=== PATIENT | male | born 1950 | race African-American/Black ===

== ENCOUNTER 2017-01-25 20:02 | Inpatient (IN) | payer MEDICARE, OTHER ==
[~2017-01-25] VITALS: Ht 177.8 cm; Wt 57.0 kg
[~2017-01-25 20:02] MED LIST: ACET-2247 PO; ALBU8HFA IH; AMLO-512 PO; ATOR40TA28 PO; CARV3 PO; FERR-89 PO; FURO40 PO; GABA-318 PO; GUAIF10 PO; INSLAN SQ; INSNOV SQ; IPRAHFA IH; ISOS1TAB2 PO; LISI-662 PO; METF500T4 PO; MULT-1203 PO; NEPA1.7D OP; OXYB5XL PO; PANT40TA25 PO; RISP3 PO; SOLI5 PO; TAMS0.4C32 PO; TERA5 PO; VALS160T2 PO
[2017-01-25 20:22] LABS: GLUCOSE,POINT OF CARE 166 MG/DL (70-110)
[2017-01-25] MEDS ORDERED: LACT1TAB11 PO (20:39)
[2017-01-25] MEDS ORDERED: METO25XL PO (20:39)
[2017-01-25] MEDS ORDERED: IPRA3AMP4 IH (20:39)
[2017-01-25] MEDS ORDERED: HYDR-2924 PO (20:39)
[2017-01-25] MEDS ORDERED: HYDR-4061 PO (20:39)
[2017-01-25] MEDS ORDERED: AMLO-512 PO (20:39)
[2017-01-25] MEDS ORDERED: OMEP20 PO (20:39)
[2017-01-25] MEDS ORDERED: SPIR25 PO (20:39)
[2017-01-25 21:21] LABS: BASOPHILS % (AUTO) 0.6 % (0.0-2.0); EOSINOPHILS % (AUTO) 4.3 % (1.0-6.0); LYMPHOCYTES # (AUTO) 0.9 K/uL (1.0-4.8); LYMPHOCYTES % (AUTO) 20.1 % (22.0-44.0); MEAN CORPUSCULAR HGB CONC 32.6 G/dL (31.0-37.0); MEAN CORPUSCULAR VOLUME 98 fL (80-100); MONOCYTES # (AUTO) 0.4 K/uL (0.1-1.0); MONOCYTES % (AUTO) 7.7 % (2.0-9.0); NEUTROPHILS # (AUTO) 3.1 K/uL (1.8-7.7); NEUTROPHILS % (AUTO) 67.3 % (40.0-70.0); PLATELET COUNT (AUTO) 402 K/uL (150-450); RED CELL DISTRIBUTION WIDTH 20.2 % (11.5-14.5); WHITE BLOOD COUNT (AUTO) 4.6 K/uL (4.5-11.0)
[2017-01-25 21:28] LABS: CREATININE 1.85 mg/dL (0.60-1.30); POTASSIUM 4.5 mmol/L (3.5-5.1)
[2017-01-25 21:29] LABS: HEMATOCRIT 19.7 % (41-53); HEMOGLOBIN 6.4 g/dL (13.5-17.5)
[2017-01-25 21:30] LABS: INR 1.1 (0.9-1.1); PROTHROMBIN TIME 11.1 SEC (9.4-11.6)
[2017-01-25 21:34] LABS: ALBUMIN 3.4 g/dL (3.4-5.0); BILIRUBIN,TOTAL 0.2 mg/dL (0.1-1.0); TOTAL PROTEIN, SERUM 7.3 g/dL (6.4-8.2)
[2017-01-25 21:38] LABS: RBC MORPHOLOGY COMMENT ABNORMAL RBC MORPH
[2017-01-25] MEDS ORDERED: ACETAMINOPHEN 325 MG TABLET PO PRN (22:30)
[2017-01-25] MEDS ORDERED: OxyCODONE HCL/ACETAMINOPHEN 5-325 MG TABLET PO PRN (22:30)
[2017-01-25] MEDS ORDERED: BISACODYL 10 MG RECTAL RECTAL SUPPOSITORY PR PRN (22:30)
[2017-01-25] MEDS ORDERED: ALBUTEROL SULFATE 2.5 MG/0.5 ML NEB SOLUTION NEB PRN (22:30)
[2017-01-25] MEDS ORDERED: SODIUM CHLORIDE 0.9% 1,000 ML IV ONE (22:37)
[2017-01-25] MEDS ORDERED: DEXTROSE 50%-WATER 25 GM/50 ML SYRINGE IVP PRN (22:45)
[2017-01-25 23:35] LABS: APPEARANCE,URINE CLEAR (CLEAR); GLUCOSE, URINE (UA) NEGATIVE (NEGATIVE); KETONES,URINE NEGATIVE (NEGATIVE); LEUKOCYTE ESTERASE ,URINE MODERATE (NEGATIVE); OCCULT BLOOD,URINE NEGATIVE (NEGATIVE); PROTEIN,URINE SEE CONFIRM (NEGATIVE)
[2017-01-25 23:43] LABS: ADD UA MICROSCOPIC YES
[2017-01-25 23:50] VITALS: BP 132/68
[2017-01-25 23:57] LABS: RBC,URINE 0-2 /HPF (0-2); SULFOSALICYLIC ACID,URINE Negative (Negative)
[2017-01-25 23:58] LABS: SQUAMOUS EPITHELIAL CELL,UR Few /LPF (None Seen)
[2017-01-26] VITALS (21 sets, daily range): BP systolic 132–177; BP diastolic 51–89
[2017-01-26 07:02] LABS: GLUCOSE,POINT OF CARE 121 MG/DL (70-110)
[2017-01-26 07:45] LABS: BASOPHILS % (AUTO) 0.4 % (0.0-2.0); EOSINOPHILS % (AUTO) 4.3 % (1.0-6.0); HEMATOCRIT 24.3 % (41-53); HEMOGLOBIN 8.1 g/dL (13.5-17.5); LYMPHOCYTES # (AUTO) 0.7 K/uL (1.0-4.8); LYMPHOCYTES % (AUTO) 14.3 % (22.0-44.0); MEAN CORPUSCULAR HEMOGLOBIN 31.5 pg (26.0-34.0); MEAN CORPUSCULAR HGB CONC 33.5 G/dL (31.0-37.0); MEAN CORPUSCULAR VOLUME 94 fL (80-100); MONOCYTES # (AUTO) 0.4 K/uL (0.1-1.0); MONOCYTES % (AUTO) 8.5 % (2.0-9.0); NEUTROPHILS # (AUTO) 3.7 K/uL (1.8-7.7); NEUTROPHILS % (AUTO) 72.5 % (40.0-70.0); PLATELET COUNT (AUTO) 355 K/uL (150-450); RED BLOOD CELL COUNT(AUTO) 2.59 MIL/uL (4.50-5.90); RED CELL DISTRIBUTION WIDTH 20.2 % (11.5-14.5)
[2017-01-26 07:54] LABS: CALCIUM, TOTAL 8.7 mg/dL (8.8-10.5); CREATININE 1.5 mg/dL (0.60-1.30); POTASSIUM 4.3 mmol/L (3.5-5.1)
[2017-01-26 08:35] LABS: RBC MORPHOLOGY COMMENT ABNORMAL RBC MORPH
[2017-01-26] MEDS: PANTOPRAZOLE SODIUM 40 MG/VIAL IVP SCH (08:38)
[2017-01-26] MEDS: DOCUSATE SODIUM 100 MG CAPSULE PO SCH ×3 (08:38→21:00)
[2017-01-26] MEDS: FUROSEMIDE 40 MG/4 ML VIAL IVP SCH ×2 (08:38→20:37)
[2017-01-26] MEDS: VITAMIN B COMP/VIT C/FOLIC ACID CAPSULE PO SCH (08:38)
[2017-01-26] MEDS: GABAPENTIN 300 MG CAPSULE PO SCH ×3 (08:38→20:37)
[2017-01-26] MEDS: INSULIN ASPART 100 UNITS/ML SQ PRN ×2 (12:06→20:44)
[2017-01-27 00:51] VITALS: BP 136/72
[2017-01-27 03:50] VITALS: BP 145/64
[2017-01-27 07:19] VITALS: BP 152/81
[2017-01-27 07:34] VITALS: BP 155/74
[2017-01-27] MEDS: VITAMIN B COMP/VIT C/FOLIC ACID CAPSULE PO SCH (09:00)
[2017-01-27] MEDS: PANTOPRAZOLE SODIUM 40 MG/VIAL IVP SCH (09:00)
[2017-01-27] MEDS: GABAPENTIN 300 MG CAPSULE PO SCH ×3 (09:00→20:22)
[2017-01-27] MEDS: FUROSEMIDE 40 MG/4 ML VIAL IVP SCH ×2 (09:00→20:22)
[2017-01-27] MEDS: DOCUSATE SODIUM 100 MG CAPSULE PO SCH ×2 (09:00→20:22)
[2017-01-27 11:21] VITALS: BP 128/58
[2017-01-27] MEDS: INSULIN ASPART 100 UNITS/ML SQ PRN ×3 (11:58→20:34)
[2017-01-27 14:43] LABS: GLUCOSE,POINT OF CARE 132 MG/DL (70-110)
[2017-01-27 14:43] LABS: GLUCOSE COMMENT 1 Received Meds; GLUCOSE,POINT OF CARE 159 MG/DL (70-110)
[2017-01-27 14:44] LABS: GLUCOSE COMMENT 1 Received Meds; GLUCOSE,POINT OF CARE 154 MG/DL (70-110)
[2017-01-27 14:44] LABS: GLUCOSE,POINT OF CARE 149 MG/DL (70-110)
[2017-01-27 14:44] LABS: GLUCOSE,POINT OF CARE 109 MG/DL (70-110)
[2017-01-27 15:16] LABS: BASOPHILS % (AUTO) 0.6 % (0.0-2.0); EOSINOPHILS % (AUTO) 3.3 % (1.0-6.0); HEMOGLOBIN 10.4 g/dL (13.5-17.5); LYMPHOCYTES # (AUTO) 0.7 K/uL (1.0-4.8); LYMPHOCYTES % (AUTO) 15.6 % (22.0-44.0); MEAN CORPUSCULAR HEMOGLOBIN 31.6 pg (26.0-34.0); MEAN CORPUSCULAR HGB CONC 33.5 G/dL (31.0-37.0); MEAN CORPUSCULAR VOLUME 94 fL (80-100); MONOCYTES # (AUTO) 0.2 K/uL (0.1-1.0); MONOCYTES % (AUTO) 5.4 % (2.0-9.0); NEUTROPHILS # (AUTO) 3.3 K/uL (1.8-7.7); NEUTROPHILS % (AUTO) 75.1 % (40.0-70.0); PLATELET COUNT (AUTO) 324 K/uL (150-450); RED BLOOD CELL COUNT(AUTO) 3.28 MIL/uL (4.50-5.90); WHITE BLOOD COUNT (AUTO) 4.4 K/uL (4.5-11.0)
[2017-01-27 16:41] LABS: RBC MORPHOLOGY COMMENT ABNORMAL RBC MORPH
[2017-01-27 17:30] LABS: VITAMIN B12 LEVEL 664 pg/mL (211-911)
[2017-01-27] MEDS ORDERED: SODIUM CHLORIDE 0.9% 250 ML IV ONE (18:29)
[2017-01-27] MEDS: CefTRIAXone SODIUM 2 GM in DEXTROSE 5%-WATER 50 ML IV SCH (18:32)
[2017-01-27 20:05] VITALS: BP 143/71
[2017-01-28 00:02] VITALS: BP 145/68
[2017-01-28 04:48] VITALS: BP 162/83
[2017-01-28 07:43] LABS: GLUCOSE COMMENT 1 Received Meds; GLUCOSE,POINT OF CARE 163 MG/DL (70-110)
[2017-01-28 07:43] LABS: GLUCOSE,POINT OF CARE 132 MG/DL (70-110)
[2017-01-28 07:43] LABS: GLUCOSE COMMENT 1 Received Meds; GLUCOSE,POINT OF CARE 175 MG/DL (70-110)
[2017-01-28 07:54] VITALS: BP 113/52
[2017-01-28] MEDS: FUROSEMIDE 40 MG/4 ML VIAL IVP SCH (08:31)
[2017-01-28] MEDS: PANTOPRAZOLE SODIUM 40 MG/VIAL IVP SCH (08:31)
[2017-01-28] MEDS: DOCUSATE SODIUM 100 MG CAPSULE PO SCH (08:32)
[2017-01-28] MEDS: GABAPENTIN 300 MG CAPSULE PO SCH ×2 (08:32→16:10)
[2017-01-28] MEDS: VITAMIN B COMP/VIT C/FOLIC ACID CAPSULE PO SCH (08:32)
[2017-01-28 10:13] VITALS: BP 151/90
[2017-01-28 11:35] VITALS: BP 150/76
[2017-01-28] MEDS ORDERED: LEVOFLOXACIN 500 MG TABLET PO ONE (11:45)
[2017-01-28 12:46] LABS: CALCIUM, TOTAL 8.7 mg/dL (8.8-10.5); CREATININE 1.67 mg/dL (0.60-1.30)
[2017-01-28 13:02] LABS: EOSINOPHILS % (AUTO) 2.7 % (1.0-6.0); HEMATOCRIT 30.9 % (41-53); HEMOGLOBIN 10.4 g/dL (13.5-17.5); LYMPHOCYTES # (AUTO) 0.6 K/uL (1.0-4.8); LYMPHOCYTES % (AUTO) 10.8 % (22.0-44.0); MEAN CORPUSCULAR HEMOGLOBIN 31.6 pg (26.0-34.0); MEAN CORPUSCULAR HGB CONC 33.4 G/dL (31.0-37.0); MEAN CORPUSCULAR VOLUME 94 fL (80-100); MONOCYTES # (AUTO) 0.5 K/uL (0.1-1.0); MONOCYTES % (AUTO) 8.8 % (2.0-9.0); NEUTROPHILS # (AUTO) 4.1 K/uL (1.8-7.7); NEUTROPHILS % (AUTO) 77.7 % (40.0-70.0); PLATELET COUNT (AUTO) 352 K/uL (150-450); RED BLOOD CELL COUNT(AUTO) 3.28 MIL/uL (4.50-5.90); RED CELL DISTRIBUTION WIDTH 18.6 % (11.5-14.5); WHITE BLOOD COUNT (AUTO) 5.2 K/uL (4.5-11.0)
[2017-01-28 13:18] LABS: RBC MORPHOLOGY COMMENT ABNORMAL RBC MORPH
[2017-01-28] MEDS ORDERED: HYDROCODONE/ACETAMINOPHEN 5-325 MG TABLET PO PRN (14:15)
[2017-01-28 14:28] LABS: GLUCOSE,POINT OF CARE 137 MG/DL (70-110)
[2017-01-28 15:34] VITALS: BP 106/69
[2017-01-28] MEDS ORDERED: LEVO250 PO (16:53)
[2017-01-28] MEDS ORDERED: FOLI1CAP2 PO (16:54)
[2017-01-28] MEDS: CefTRIAXone SODIUM 2 GM in DEXTROSE 5%-WATER 50 ML IV SCH (17:41)
[2017-01-29 01:02] LABS: GLUCOSE,POINT OF CARE 130 MG/DL (70-110)
[2017-01-29] MEDS ORDERED: LEVOFLOXACIN 500 MG TABLET PO SCH (09:00)
== END 2017-01-28 18:55 | DRG 811 ==
LOC: EMS 20:05 → 5S 22:44
PROVIDERS: ADMIT Internal Medicine; ATTEND Internal Medicine
PROC: 30233N1 Transfusion of Nonautologous Red Blood Cells into Peripheral Vein, Percutaneous Approach (ICD-10-PCS; principal; 2017-01-25)
DX: D64.9 Anemia, unspecified (principal); E43 Unspecified severe protein-calorie malnutrition; I50.43 Acute on chronic combined systolic (congestive) and diastolic (congestive) heart failure; I13.0 Hypertensive heart and chronic kidney disease with heart failure and stage 1 through stage 4 chronic kidney disease, or unspecified chronic kidney disease; E11.22 Type 2 diabetes mellitus with diabetic chronic kidney disease; E11.40 Type 2 diabetes mellitus with diabetic neuropathy, unspecified; N18.3 Chronic kidney disease, stage 3 (moderate); I25.10 Atherosclerotic heart disease of native coronary artery without angina pectoris; J44.9 Chronic obstructive pulmonary disease, unspecified; F17.210 Nicotine dependence, cigarettes, uncomplicated; F20.9 Schizophrenia, unspecified; G89.29 Other chronic pain; H40.9 Unspecified glaucoma; Z79.4 Long term (current) use of insulin; Z87.11 Personal history of peptic ulcer disease
CPT/HCPCS: 36430; 82271; 82607; 82746; 82962; 86850; 86900; 86901; 86920; 87081; 87086; 93005; 93306; 99285; C9113; J0696; J1940; J7030; J7050; J7060; P9016

== ENCOUNTER 2017-02-15 17:52 | Emergency (ER) | payer MEDICARE, OTHER ==
[~2017-02-15] VITALS: Ht 180.3 cm; Wt 61.8 kg
[~2017-02-15 17:52] MED LIST changes: -ACET-2247 PO; -ALBU8HFA IH; -ATOR40TA28 PO; -CARV3 PO; +FOLI1CAP2 PO; -GUAIF10 PO; +HYDR-2924 PO; +HYDR-4061 PO; -INSNOV SQ; +IPRA3AMP4 IH; -IPRAHFA IH; -ISOS1TAB2 PO; +LACT1TAB11 PO; +LEVO250 PO; -LISI-662 PO; -METF500T4 PO; +METO25XL PO; -MULT-1203 PO; -NEPA1.7D OP; +OMEP20 PO; -OXYB5XL PO; -PANT40TA25 PO; -RISP3 PO; -SOLI5 PO; +SPIR25 PO; -TAMS0.4C32 PO; -TERA5 PO; -VALS160T2 PO
[2017-02-15 18:43] LABS: BASOPHILS % (AUTO) 0.4 % (0.0-2.0); EOSINOPHILS % (AUTO) 2.6 % (1.0-6.0); HEMATOCRIT 22.2 % (41-53); HEMOGLOBIN 7.2 g/dL (13.5-17.5); LYMPHOCYTES # (AUTO) 1.3 K/uL (1.0-4.8); LYMPHOCYTES % (AUTO) 16.6 % (22.0-44.0); MEAN CORPUSCULAR HEMOGLOBIN 31.1 pg (26.0-34.0); MEAN CORPUSCULAR HGB CONC 32.7 G/dL (31.0-37.0); MEAN CORPUSCULAR VOLUME 95 fL (80-100); MONOCYTES # (AUTO) 0.4 K/uL (0.1-1.0); MONOCYTES % (AUTO) 5.8 % (2.0-9.0); NEUTROPHILS # (AUTO) 5.7 K/uL (1.8-7.7); NEUTROPHILS % (AUTO) 74.6 % (40.0-70.0); PLATELET COUNT (AUTO) 409 K/uL (150-450); RED BLOOD CELL COUNT(AUTO) 2.33 MIL/uL (4.50-5.90); RED CELL DISTRIBUTION WIDTH 17.9 % (11.5-14.5); WHITE BLOOD COUNT (AUTO) 7.6 K/uL (4.5-11.0)
[2017-02-15 18:53] LABS: CALCIUM, TOTAL 9.1 mg/dL (8.8-10.5); CREATININE 2.04 mg/dL (0.60-1.30); POTASSIUM 4.6 mmol/L (3.5-5.1)
[2017-02-15 18:59] LABS: ALBUMIN 3.5 g/dL (3.4-5.0); BILIRUBIN,TOTAL 0.3 mg/dL (0.1-1.0); TOTAL PROTEIN, SERUM 7.7 g/dL (6.4-8.2)
[2017-02-15 19:26] LABS: RBC MORPHOLOGY COMMENT ABNORMAL RBC MORPH
[2017-02-15] MEDS ORDERED: SODIUM CHLORIDE 0.9% 500 ML IV ONE (22:15)
[2017-02-15 22:30] VITALS: BP 135/84
[2017-02-15 22:45] VITALS: BP 127/66
[2017-02-15 23:00] VITALS: BP 147/66
[2017-02-15 23:15] VITALS: BP 142/65
[2017-02-15 23:45] VITALS: BP 136/72
[2017-02-16 00:30] VITALS: BP 138/81
[2017-02-16 00:45] VITALS: BP 141/76
[2017-02-16 01:39] VITALS: BP 141/76
== END 2017-02-16 02:35 | disposition home or self-care (01) ==
LOC: EMS 17:54
DX: D64.9 Anemia, unspecified (principal); N17.9 Acute kidney failure, unspecified; I11.0 Hypertensive heart disease with heart failure; I50.9 Heart failure, unspecified; E11.9 Type 2 diabetes mellitus without complications; J44.9 Chronic obstructive pulmonary disease, unspecified; Z79.4 Long term (current) use of insulin; Z87.891 Personal history of nicotine dependence
CPT/HCPCS: 36415; 36430; 80053; 82270; 83540; 83550; 85025; 86850; 86900; 86901; 86920; 99285; J7040; P9016

== ENCOUNTER 2017-03-10 09:02 | Inpatient (IN) | payer MEDICARE, OTHER ==
[2017-03-10] VITALS (15 sets, daily range): BP systolic 122–173; BP diastolic 57–90
[~2017-03-10] VITALS: Ht 180.3 cm; Wt 67.4 kg
[2017-03-10 09:13] LABS: GLUCOSE,POINT OF CARE 245 MG/DL (70-110)
[2017-03-10 10:49] LABS: MEAN CORPUSCULAR HEMOGLOBIN 30.9 pg (26.0-34.0); MEAN CORPUSCULAR HGB CONC 33.6 G/dL (31.0-37.0); MEAN CORPUSCULAR VOLUME 92 fL (80-100); PLATELET COUNT (AUTO) 375 K/uL (150-450); RED BLOOD CELL COUNT(AUTO) 2.12 MIL/uL (4.50-5.90); RED CELL DISTRIBUTION WIDTH 19.5 % (11.5-14.5)
[2017-03-10 10:51] LABS: HEMOGLOBIN 6.6 g/dL (13.5-17.5)
[2017-03-10 10:52] LABS: HEMATOCRIT 19.5 % (41-53)
[2017-03-10 10:55] LABS: INR 1.1 (0.9-1.1); PROTHROMBIN TIME 11.5 SEC (9.4-11.6)
[2017-03-10 10:58] LABS: CREATININE 2.06 mg/dL (0.60-1.30); POTASSIUM 4.4 mmol/L (3.5-5.1)
[2017-03-10 11:03] LABS: ALBUMIN 3.3 g/dL (3.4-5.0); BILIRUBIN,TOTAL 0.2 mg/dL (0.1-1.0); TOTAL PROTEIN, SERUM 7.1 g/dL (6.4-8.2)
[2017-03-10 11:06] LABS: BAND NEUTROPHILS % (MANUAL) 4 % (1-5); EOSINOPHILS % (MANUAL) 1 % (1-6); LYMPHOCYTES % (MANUAL) 24 % (22-44); SEGMENTED NEUTROPHILS % 71 % (40-70)
[2017-03-10 11:31] LABS: APPEARANCE,URINE CLOUDY (CLEAR); BILIRUBIN,URINE NEGATIVE (NEGATIVE); GLUCOSE, URINE (UA) NEGATIVE (NEGATIVE); KETONES,URINE NEGATIVE (NEGATIVE); LEUKOCYTE ESTERASE ,URINE MODERATE (NEGATIVE); NITRATE,URINE POSITIVE (NEGATIVE); OCCULT BLOOD,URINE NEGATIVE (NEGATIVE); PH,URINE 5.5 (5.0-8.0); PROTEIN,URINE SEE CONFIRM (NEGATIVE); UROBILINOGEN,URINE 0.2 mg/dL (<=1.0)
[2017-03-10 11:36] LABS: BACTERIA,URINE Few /HPF (None Seen); RBC,URINE None Seen /HPF (0-2); SQUAMOUS EPITHELIAL CELL,UR Few /LPF (None Seen); SULFOSALICYLIC ACID,URINE 3+ (Negative); WBC,URINE 51-100 /HPF (0-5); YEAST,URINE Few /HPF (None Seen)
[2017-03-10] MEDS ORDERED: ASPIRIN 81 MG CHEWABLE TABLET PO ONE (11:45)
[2017-03-10] MEDS ORDERED: CefTRIAXone 1 GM/DEXTROSE 50 ML IV ONE (11:45)
[2017-03-10] MEDS ORDERED: SODIUM CHLORIDE 0.9% 500 ML IV ONE (12:30)
[2017-03-10] MEDS ORDERED: ACETAMINOPHEN 325 MG TABLET PO PRN ×2 (13:00→15:30)
[2017-03-10] MEDS ORDERED: 0.9% SODIUM CHLORIDE 10 ML SYRINGE IVP PRN (13:00)
[2017-03-10] MEDS ORDERED: ONDANSETRON HCL 4 MG/2 ML VIAL IVP PRN ×2 (13:00→15:30)
[2017-03-10] MEDS ORDERED: HYDROCODONE/ACETAMINOPHEN 5-325 MG TABLET PO PRN (15:30)
[2017-03-10] MEDS ORDERED: BISACODYL 10 MG RECTAL RECTAL SUPPOSITORY PR PRN (15:30)
[2017-03-10] MEDS ORDERED: MORPHINE SULFATE 2 MG/ML SYRINGE IVP PRN (15:30)
[2017-03-10] MEDS ORDERED: DEXTROSE 50%-WATER 25 GM/50 ML SYRINGE IVP PRN (15:30)
[2017-03-10] MEDS ORDERED: ZOLPIDEM TARTRATE 5 MG TABLET PO PRN (15:30)
[2017-03-10] MEDS ORDERED: MAGNESIUM HYDROXIDE SUSPENSION 30 ML UDCUP PO PRN (15:30)
[2017-03-10] MEDS: HydrALAZINE HCL 20 MG/ML VIAL IVP PRN ×2 (15:46→20:06)
[2017-03-10 15:59] LABS: BASOPHILS % (AUTO) 1.5 % (0.0-2.0); EOSINOPHILS % (AUTO) 2.8 % (1.0-6.0); HEMOGLOBIN 7.7 g/dL (13.5-17.5); LYMPHOCYTES # (AUTO) 1.4 K/uL (1.0-4.8); LYMPHOCYTES % (AUTO) 18.1 % (22.0-44.0); MEAN CORPUSCULAR HEMOGLOBIN 30.5 pg (26.0-34.0); MEAN CORPUSCULAR HGB CONC 33.6 G/dL (31.0-37.0); MEAN CORPUSCULAR VOLUME 91 fL (80-100); MONOCYTES # (AUTO) 0.4 K/uL (0.1-1.0); MONOCYTES % (AUTO) 5.8 % (2.0-9.0); NEUTROPHILS # (AUTO) 5.4 K/uL (1.8-7.7); NEUTROPHILS % (AUTO) 71.8 % (40.0-70.0); PLATELET COUNT (AUTO) 391 K/uL (150-450); RED BLOOD CELL COUNT(AUTO) 2.53 MIL/uL (4.50-5.90); RED CELL DISTRIBUTION WIDTH 18.4 % (11.5-14.5)
[2017-03-10] MEDS ORDERED: INFLUENZA VIRUS VACCINE QVS 2017-18 (3YR+)/PF 60 MCG/0.5 ML SYRINGE IM ONE (16:15)
[2017-03-10] MEDS: FERROUS SULFATE 325 MG EC TABLET PO SCH (17:48)
[2017-03-10] MEDS: HydrALAZINE HCL 50 MG TABLET PO SCH ×2 (17:49→23:29)
[2017-03-10] MEDS: INSULIN ASPART 100 UNITS/ML SQ PRN ×2 (18:03→20:16)
[2017-03-10] MEDS: FUROSEMIDE 40 MG TABLET PO SCH (20:04)
[2017-03-10] MEDS: PANTOPRAZOLE SODIUM 40 MG/VIAL IVP SCH (20:04)
[2017-03-10] MEDS: DOCUSATE SODIUM 100 MG CAPSULE PO SCH (20:17)
[2017-03-10] MEDS: INSULIN DETEMIR 100 UNITS/ML SQ SCH (20:17)
[2017-03-10] MEDS: GABAPENTIN 300 MG CAPSULE PO SCH (21:11)
[2017-03-10] MEDS: HYDROCODONE/ACETAMINOPHEN 5-325 MG TABLET PO PRN (23:03)
[2017-03-10] MEDS: SIMETHICONE 80 MG CHEWABLE TABLET CHEW PRN (23:29)
[2017-03-11] VITALS (7 sets, daily range): BP systolic 125–165; BP diastolic 54–70
[2017-03-11] MEDS: HydrALAZINE HCL 50 MG TABLET PO SCH ×4 (05:40→23:34)
[2017-03-11 07:28] LABS: BASOPHILS # (AUTO) 0.02 K/uL (0.00-0.20); BASOPHILS % (AUTO) 0.3 % (0.0-2.0); EOSINOPHILS # (AUTO) 0.16 K/uL (0.00-0.70); EOSINOPHILS % (AUTO) 2.01 % (1.0-6.0); HEMATOCRIT 25.7 % (41-53); HEMOGLOBIN 8.4 g/dL (13.5-17.5); LYMPHOCYTES # (AUTO) 1.8 K/uL (1.0-4.8); LYMPHOCYTES % (AUTO) 22.2 % (22.0-44.0); MEAN CORPUSCULAR HEMOGLOBIN 29.8 pg (26.0-34.0); MEAN CORPUSCULAR HGB CONC 32.8 G/dL (31.0-37.0); MEAN CORPUSCULAR VOLUME 91 fL (80-100); MONOCYTES # (AUTO) 0.5 K/uL (0.1-1.0); MONOCYTES % (AUTO) 6.8 % (2.0-9.0); NEUTROPHILS # (AUTO) 5.4 K/uL (1.8-7.7); NEUTROPHILS % (AUTO) 68.7 % (40.0-70.0); PLATELET COUNT (AUTO) 389 K/uL (150-450); RED BLOOD CELL COUNT(AUTO) 2.83 MIL/uL (4.50-5.90); RED CELL DISTRIBUTION WIDTH 19.7 % (11.5-14.5)
[2017-03-11 07:47] LABS: % IRON SATURATION 22.1 % (30-44)
[2017-03-11 07:56] LABS: ALBUMIN 2.9 g/dL (3.4-5.0); BILIRUBIN,TOTAL 0.3 mg/dL (0.1-1.0); CALCIUM, TOTAL 8.5 mg/dL (8.8-10.5); CREATININE 1.96 mg/dL (0.60-1.30); POTASSIUM 3.4 mmol/L (3.5-5.1); TOTAL PROTEIN, SERUM 6.4 g/dL (6.4-8.2)
[2017-03-11] MEDS: PANTOPRAZOLE SODIUM 40 MG/VIAL IVP SCH ×2 (08:15→20:12)
[2017-03-11] MEDS: VITAMIN B COMP/VIT C/FOLIC ACID CAPSULE PO SCH (08:16)
[2017-03-11] MEDS: FUROSEMIDE 40 MG TABLET PO SCH ×2 (08:16→20:12)
[2017-03-11] MEDS: FERROUS SULFATE 325 MG EC TABLET PO SCH ×2 (08:16→17:42)
[2017-03-11] MEDS: GABAPENTIN 300 MG CAPSULE PO SCH ×3 (08:16→20:12)
[2017-03-11] MEDS: SPIRONOLACTONE 25 MG TABLET PO SCH (08:17)
[2017-03-11] MEDS: AmLODIPine BESYLATE 10 MG TABLET PO SCH (08:17)
[2017-03-11] MEDS: METOPROLOL SUCCINATE 25 MG ER TABLET PO SCH (08:17)
[2017-03-11] MEDS: DOCUSATE SODIUM 100 MG CAPSULE PO SCH ×2 (08:20→20:18)
[2017-03-11] MEDS: SIMETHICONE 80 MG CHEWABLE TABLET CHEW PRN ×2 (08:23→15:49)
[2017-03-11] MEDS ORDERED: PANTOPRAZOLE SODIUM 40 MG DR TABLET PO SCH (09:00)
[2017-03-11] MEDS: INSULIN DETEMIR 100 UNITS/ML SQ SCH ×2 (09:35→20:50)
[2017-03-11] MEDS: HYDROCODONE/ACETAMINOPHEN 5-325 MG TABLET PO PRN ×3 (09:37→20:46)
[2017-03-11] MEDS: CefTRIAXone 1 GM/DEXTROSE 50 ML IV SCH (11:20)
[2017-03-11] MEDS: INSULIN ASPART 100 UNITS/ML SQ PRN ×2 (11:52→17:43)
[2017-03-11 19:43] LABS: GLUCOMETER DEV NAME(LOC) 5S 1L; GLUCOSE,POINT OF CARE 84 MG/DL (70-110)
[2017-03-11 19:43] LABS: GLUCOMETER DEV NAME(LOC) 5S 1L; GLUCOSE,POINT OF CARE 209 MG/DL (70-110)
[2017-03-11 19:43] LABS: GLUCOMETER DEV NAME(LOC) 5S 1L; GLUCOSE,POINT OF CARE 190 MG/DL (70-110)
[2017-03-11 22:48] LABS: GLUCOMETER DEV NAME(LOC) 5S 2N; GLUCOSE,POINT OF CARE 158 MG/DL (70-110)
[2017-03-11 22:48] LABS: GLUCOMETER DEV NAME(LOC) 5S 2N; GLUCOSE,POINT OF CARE 277 MG/DL (70-110)
[2017-03-12 02:12] LABS: GLUCOMETER DEV NAME(LOC) 5S 1L; GLUCOSE,POINT OF CARE 114 MG/DL (70-110)
[2017-03-12 05:21] VITALS: BP 157/74
[2017-03-12] MEDS: HydrALAZINE HCL 50 MG TABLET PO SCH ×2 (06:07→12:07)
[2017-03-12 07:02] LABS: GLUCOMETER DEV NAME(LOC) 5S 2N; GLUCOSE,POINT OF CARE 133 MG/DL (70-110)
[2017-03-12 07:18] VITALS: BP 159/69
[2017-03-12] MEDS: INSULIN DETEMIR 100 UNITS/ML SQ SCH (08:15)
[2017-03-12] MEDS: GABAPENTIN 300 MG CAPSULE PO SCH (08:16)
[2017-03-12] MEDS: FERROUS SULFATE 325 MG EC TABLET PO SCH (08:16)
[2017-03-12] MEDS: VITAMIN B COMP/VIT C/FOLIC ACID CAPSULE PO SCH (08:16)
[2017-03-12] MEDS: DOCUSATE SODIUM 100 MG CAPSULE PO SCH (08:16)
[2017-03-12] MEDS: METOPROLOL SUCCINATE 25 MG ER TABLET PO SCH (08:16)
[2017-03-12] MEDS: FUROSEMIDE 40 MG TABLET PO SCH (08:17)
[2017-03-12] MEDS: SPIRONOLACTONE 25 MG TABLET PO SCH (08:17)
[2017-03-12] MEDS: AmLODIPine BESYLATE 10 MG TABLET PO SCH (08:17)
[2017-03-12] MEDS: PANTOPRAZOLE SODIUM 40 MG/VIAL IVP SCH (08:17)
[2017-03-12] MEDS: SIMETHICONE 80 MG CHEWABLE TABLET CHEW PRN ×2 (08:19→14:59)
[2017-03-12] MEDS: HYDROCODONE/ACETAMINOPHEN 5-325 MG TABLET PO PRN (08:27)
[2017-03-12 09:32] LABS: CALCIUM, TOTAL 8.8 mg/dL (8.8-10.5); CREATININE 1.95 mg/dL (0.60-1.30); POTASSIUM 3.9 mmol/L (3.5-5.1)
[2017-03-12 10:38] VITALS: BP 154/99
[2017-03-12] MEDS: CefTRIAXone 1 GM/DEXTROSE 50 ML IV SCH (12:07)
[2017-03-12] MEDS: INSULIN ASPART 100 UNITS/ML SQ PRN (12:09)
[2017-03-12] MEDS ORDERED: DSS100 PO (13:04)
[2017-03-12] MEDS ORDERED: LEVO500 PO (13:10)
[2017-03-12] MEDS ORDERED: PANT40TA25 PO (13:16)
[2017-03-12] MEDS ORDERED: INSU100V12 SQ (13:17)
[2017-03-12] MEDS ORDERED: FERR-89 PO (13:17)
[2017-03-12] MEDS ORDERED: ACET-784 PO (13:19)
[2017-03-12 14:56] VITALS: BP 149/70
[2017-03-12 19:34] LABS: GLUCOMETER DEV NAME(LOC) 5S 2N; GLUCOSE,POINT OF CARE 232 MG/DL (70-110)
== END 2017-03-12 15:55 | DRG 378 ==
LOC: EMS 09:03 → 5S 12:50
PROVIDERS: ADMIT Internal Medicine; ATTEND Internal Medicine
PROC: 30233N1 Transfusion of Nonautologous Red Blood Cells into Peripheral Vein, Percutaneous Approach (ICD-10-PCS; principal; 2017-03-10)
DX: K92.1 Melena (principal); I13.0 Hypertensive heart and chronic kidney disease with heart failure and stage 1 through stage 4 chronic kidney disease, or unspecified chronic kidney disease; E11.22 Type 2 diabetes mellitus with diabetic chronic kidney disease; E11.40 Type 2 diabetes mellitus with diabetic neuropathy, unspecified; I42.9 Cardiomyopathy, unspecified; N39.0 Urinary tract infection, site not specified; I27.20 Pulmonary hypertension, unspecified; N18.3 Chronic kidney disease, stage 3 (moderate); D64.9 Anemia, unspecified; I50.9 Heart failure, unspecified; J44.9 Chronic obstructive pulmonary disease, unspecified; K27.9 Peptic ulcer, site unspecified, unspecified as acute or chronic, without hemorrhage or perforation; Z87.11 Personal history of peptic ulcer disease
CPT/HCPCS: 36430; 82270; 82728; 82962; 83540; 83550; 86850; 86900; 86901; 86920; 87040; 87081; 87086; 93005; 93306; 96365; 96366; 99291; C9113; J0360; J0696; P9016

== ENCOUNTER 2017-03-29 19:36 | Inpatient (IN) | payer MEDICARE, OTHER ==
[~2017-03-29] VITALS: Ht 180.3 cm; Wt 60.7 kg
[~2017-03-29 19:36] MED LIST changes: +ACET-784 PO; +DSS100 PO; -HYDR-4061 PO; -INSLAN SQ; +INSU100V12 SQ; -IPRA3AMP4 IH; -LACT1TAB11 PO; -LEVO250 PO; +LEVO500 PO; -OMEP20 PO; +PANT40TA25 PO
[2017-03-29] MEDS ORDERED: HYDR-309 PO (20:01)
[2017-03-29 20:32] LABS: GLUCOSE,POINT OF CARE 136 MG/DL (70-110)
[2017-03-29 21:04] LABS: ADD UA MICROSCOPIC NO; APPEARANCE,URINE CLEAR (CLEAR); GLUCOSE, URINE (UA) NEGATIVE (NEGATIVE); KETONES,URINE NEGATIVE (NEGATIVE); LEUKOCYTE ESTERASE ,URINE NEGATIVE (NEGATIVE); OCCULT BLOOD,URINE NEGATIVE (NEGATIVE); PH,URINE 5.5 (5.0-8.0); PROTEIN,URINE NEGATIVE (NEGATIVE)
[2017-03-29 21:18] LABS: BASOPHILS # (AUTO) 0.01 K/uL (0.00-0.20); BASOPHILS % (AUTO) 0.2 % (0.0-2.0); EOSINOPHILS # (AUTO) 0.22 K/uL (0.00-0.70); EOSINOPHILS % (AUTO) 3.46 % (1.0-6.0); LYMPHOCYTES % (AUTO) 15.5 % (22.0-44.0); MEAN CORPUSCULAR HEMOGLOBIN 31.4 pg (26.0-34.0); MEAN CORPUSCULAR HGB CONC 32.8 G/dL (31.0-37.0); MEAN CORPUSCULAR VOLUME 96 fL (80-100); MONOCYTES # (AUTO) 0.7 K/uL (0.1-1.0); MONOCYTES % (AUTO) 10.2 % (2.0-9.0); NEUTROPHILS # (AUTO) 4.5 K/uL (1.8-7.7); NEUTROPHILS % (AUTO) 70.6 % (40.0-70.0); PLATELET COUNT (AUTO) 300 K/uL (150-450); RED BLOOD CELL COUNT(AUTO) 2.03 MIL/uL (4.50-5.90); RED CELL DISTRIBUTION WIDTH 20.2 % (11.5-14.5); WHITE BLOOD COUNT (AUTO) 6.4 K/uL (4.5-11.0)
[2017-03-29 21:30] LABS: HEMATOCRIT 19.4 % (41-53); HEMOGLOBIN 6.4 g/dL (13.5-17.5)
[2017-03-29] MEDS ORDERED: PANTOPRAZOLE SODIUM 40 MG/VIAL IVP ONE (21:30)
[2017-03-29 21:31] LABS: CALCIUM, TOTAL 8.8 mg/dL (8.8-10.5); CREATININE 2.01 mg/dL (0.60-1.30); INR 1.1 (0.9-1.1); POTASSIUM 4.1 mmol/L (3.5-5.1); PROTHROMBIN TIME 11.4 SEC (9.4-11.6)
[2017-03-29 21:37] LABS: ALBUMIN 3.3 g/dL (3.4-5.0); BILIRUBIN,TOTAL 0.2 mg/dL (0.1-1.0); TOTAL PROTEIN, SERUM 6.8 g/dL (6.4-8.2)
[2017-03-29] MEDS ORDERED: SODIUM CHLORIDE 0.9% 500 ML IV ONE (22:03)
[2017-03-29 22:13] LABS: RBC MORPHOLOGY COMMENT ABNORMAL RBC MORPH
[2017-03-29 22:15] VITALS: BP 143/56
[2017-03-29 22:30] VITALS: BP 145/64
[2017-03-29] MEDS ORDERED: ONDANSETRON HCL 4 MG/2 ML VIAL IVP PRN (22:30)
[2017-03-29] MEDS ORDERED: ACETAMINOPHEN 325 MG TABLET PO PRN (22:30)
[2017-03-29] MEDS ORDERED: ZOLPIDEM TARTRATE 5 MG TABLET PO PRN (22:30)
[2017-03-29] MEDS ORDERED: MORPHINE SULFATE 2 MG/ML SYRINGE IVP PRN (22:30)
[2017-03-29] MEDS ORDERED: BISACODYL 10 MG RECTAL RECTAL SUPPOSITORY PR PRN (22:30)
[2017-03-29] MEDS ORDERED: ALBUTEROL SULFATE 2.5 MG/0.5 ML NEB SOLUTION NEB PRN (22:30)
[2017-03-29] MEDS ORDERED: MAGNESIUM HYDROXIDE SUSPENSION 30 ML UDCUP PO PRN (22:30)
[2017-03-29] MEDS ORDERED: IPRATROPIUM BROMIDE 0.5 MG/2.5 ML NEB SOLUTION NEB PRN (22:30)
[2017-03-29 22:45] VITALS: BP 139/65
[2017-03-29 23:15] VITALS: BP 159/60
[2017-03-29 23:45] VITALS: BP 149/57
[2017-03-30] VITALS (27 sets, daily range): BP systolic 134–170; BP diastolic 38–78
[2017-03-30] MEDS: HYDROCODONE/ACETAMINOPHEN 5-325 MG TABLET PO PRN ×4 (03:49→23:34)
[2017-03-30] MEDS ORDERED: INFLUENZA VIRUS VACCINE QVS 2017-18 (3YR+)/PF 60 MCG/0.5 ML SYRINGE IM ONE (04:30)
[2017-03-30] MEDS ORDERED: -PHARMACY VACCINE NOTE- MISC ONE ×2 (04:30)
[2017-03-30] MEDS: HydrALAZINE HCL 50 MG TABLET PO SCH ×3 (06:02→21:00)
[2017-03-30] MEDS ORDERED: SODIUM CHLORIDE 0.9% 0 ML IV ONE (06:26)
[2017-03-30 07:38] LABS: GLUCOSE,POINT OF CARE 104 MG/DL (70-110)
[2017-03-30] MEDS: FERROUS SULFATE 325 MG EC TABLET PO SCH ×2 (08:00→17:22)
[2017-03-30] MEDS: INSULIN DETEMIR 100 UNITS/ML SQ SCH ×2 (08:11→21:00)
[2017-03-30] MEDS: VITAMIN B COMP/VIT C/FOLIC ACID CAPSULE PO SCH (09:00)
[2017-03-30] MEDS: GABAPENTIN 300 MG CAPSULE PO SCH ×4 (09:00→21:00)
[2017-03-30] MEDS: DOCUSATE SODIUM 100 MG CAPSULE PO SCH ×2 (09:00→21:00)
[2017-03-30] MEDS: AmLODIPine BESYLATE 10 MG TABLET PO SCH (09:00)
[2017-03-30] MEDS: SPIRONOLACTONE 25 MG TABLET PO SCH (09:00)
[2017-03-30] MEDS: FUROSEMIDE 40 MG TABLET PO SCH ×2 (10:35→21:01)
[2017-03-30] MEDS: PANTOPRAZOLE SODIUM 40 MG/VIAL IVP SCH (10:35)
[2017-03-30 11:14] LABS: HEMATOCRIT 28.8 % (41-53); HEMOGLOBIN 9.7 g/dL (13.5-17.5); MEAN CORPUSCULAR HEMOGLOBIN 31.4 pg (26.0-34.0); MEAN CORPUSCULAR HGB CONC 33.6 G/dL (31.0-37.0); MEAN CORPUSCULAR VOLUME 94 fL (80-100); PLATELET COUNT (AUTO) 265 K/uL (150-450); RED BLOOD CELL COUNT(AUTO) 3.08 MIL/uL (4.50-5.90); RED CELL DISTRIBUTION WIDTH 18.1 % (11.5-14.5); WHITE BLOOD COUNT (AUTO) 6.2 K/uL (4.5-11.0)
[2017-03-30 12:07] LABS: BAND NEUTROPHILS % (MANUAL) 1 % (1-5); EOSINOPHILS % (MANUAL) 3 % (1-6); LYMPHOCYTES % (MANUAL) 10 % (22-44); RBC MORPHOLOGY COMMENT ABNORMAL RBC MORPH; TOTAL CELLS COUNTED 100
[2017-03-30] MEDS ORDERED: PEG 3350/NA SULF,BICARB,CL/KCL 4000 ML SOLUTION PO ONE (12:15)
[2017-03-31] VITALS (8 sets, daily range): BP systolic 129–159; BP diastolic 64–83
[2017-03-31] MEDS: HydrALAZINE HCL 50 MG TABLET PO SCH ×3 (06:56→23:52)
[2017-03-31] MEDS: PANTOPRAZOLE SODIUM 40 MG/VIAL IVP SCH (07:58)
[2017-03-31] MEDS: AmLODIPine BESYLATE 10 MG TABLET PO SCH (07:58)
[2017-03-31] MEDS: FERROUS SULFATE 325 MG EC TABLET PO SCH ×2 (08:00→18:06)
[2017-03-31] MEDS: DOCUSATE SODIUM 100 MG CAPSULE PO SCH ×2 (08:57→20:53)
[2017-03-31] MEDS: FUROSEMIDE 40 MG TABLET PO SCH ×3 (08:57→21:00)
[2017-03-31] MEDS: SPIRONOLACTONE 25 MG TABLET PO SCH ×2 (08:57→12:39)
[2017-03-31] MEDS: VITAMIN B COMP/VIT C/FOLIC ACID CAPSULE PO SCH ×2 (08:58→12:39)
[2017-03-31] MEDS: GABAPENTIN 300 MG CAPSULE PO SCH ×4 (08:58→21:00)
[2017-03-31] MEDS: INSULIN DETEMIR 100 UNITS/ML SQ SCH ×2 (08:58→21:23)
[2017-03-31] MEDS ORDERED: SODIUM CHLORIDE 0.9% 1,000 ML IV ONE ×2 (09:00)
[2017-03-31] MEDS: HYDROCODONE/ACETAMINOPHEN 5-325 MG TABLET PO PRN ×2 (14:09→21:01)
[2017-03-31 18:32] LABS: BASOPHILS % (AUTO) 0.2 % (0.0-2.0); EOSINOPHILS % (AUTO) 1.9 % (1.0-6.0); HEMATOCRIT 31.8 % (41-53); HEMOGLOBIN 10.9 g/dL (13.5-17.5); LYMPHOCYTES # (AUTO) 0.9 K/uL (1.0-4.8); LYMPHOCYTES % (AUTO) 10.1 % (22.0-44.0); MEAN CORPUSCULAR HEMOGLOBIN 31.6 pg (26.0-34.0); MEAN CORPUSCULAR HGB CONC 34.3 G/dL (31.0-37.0); MEAN CORPUSCULAR VOLUME 92 fL (80-100); MONOCYTES # (AUTO) 0.6 K/uL (0.1-1.0); MONOCYTES % (AUTO) 6.9 % (2.0-9.0); NEUTROPHILS # (AUTO) 6.9 K/uL (1.8-7.7); NEUTROPHILS % (AUTO) 80.9 % (40.0-70.0); PLATELET COUNT (AUTO) 316 K/uL (150-450); RED BLOOD CELL COUNT(AUTO) 3.46 MIL/uL (4.50-5.90); RED CELL DISTRIBUTION WIDTH 18.1 % (11.5-14.5); WHITE BLOOD COUNT (AUTO) 8.5 K/uL (4.5-11.0)
[2017-03-31 19:45] LABS: RBC MORPHOLOGY COMMENT ABNORMAL RBC MORPH
[2017-04-01 05:11] VITALS: BP 148/67
[2017-04-01] MEDS ORDERED: PROPOFOL 1% 20 ML VIAL IVP ONE (05:44)
[2017-04-01] MEDS: HydrALAZINE HCL 50 MG TABLET PO SCH ×2 (06:48→15:30)
[2017-04-01 07:32] VITALS: BP 159/65
[2017-04-01] MEDS: GABAPENTIN 300 MG CAPSULE PO SCH ×2 (08:56→17:02)
[2017-04-01] MEDS: FUROSEMIDE 40 MG TABLET PO SCH (08:56)
[2017-04-01] MEDS: VITAMIN B COMP/VIT C/FOLIC ACID CAPSULE PO SCH (08:56)
[2017-04-01] MEDS: SPIRONOLACTONE 25 MG TABLET PO SCH (08:57)
[2017-04-01] MEDS: FERROUS SULFATE 325 MG EC TABLET PO SCH ×2 (08:57→17:01)
[2017-04-01] MEDS: PANTOPRAZOLE SODIUM 40 MG/VIAL IVP SCH (08:57)
[2017-04-01] MEDS: DOCUSATE SODIUM 100 MG CAPSULE PO SCH (08:57)
[2017-04-01] MEDS: AmLODIPine BESYLATE 10 MG TABLET PO SCH (08:57)
[2017-04-01] MEDS ORDERED: MUPIROCIN CALCIUM 2% 22 GM OINTMENT NASAL SCH (09:00)
[2017-04-01] MEDS: HYDROCODONE/ACETAMINOPHEN 5-325 MG TABLET PO PRN ×2 (09:05→15:30)
[2017-04-01] MEDS: INSULIN DETEMIR 100 UNITS/ML SQ SCH (09:14)
[2017-04-01 10:06] LABS: GLUCOSE COMMENT 1 Received Meds; GLUCOSE,POINT OF CARE 155 MG/DL (70-110)
[2017-04-01 11:04] LABS: BASOPHILS % (AUTO) 0.1 % (0.0-2.0); EOSINOPHILS % (AUTO) 2.6 % (1.0-6.0); HEMATOCRIT 31.2 % (41-53); HEMOGLOBIN 10.7 g/dL (13.5-17.5); LYMPHOCYTES # (AUTO) 0.7 K/uL (1.0-4.8); LYMPHOCYTES % (AUTO) 8.2 % (22.0-44.0); MEAN CORPUSCULAR HEMOGLOBIN 31.9 pg (26.0-34.0); MEAN CORPUSCULAR HGB CONC 34.2 G/dL (31.0-37.0); MEAN CORPUSCULAR VOLUME 93 fL (80-100); MONOCYTES # (AUTO) 0.6 K/uL (0.1-1.0); NEUTROPHILS # (AUTO) 6.6 K/uL (1.8-7.7); NEUTROPHILS % (AUTO) 81.1 % (40.0-70.0); PLATELET COUNT (AUTO) 305 K/uL (150-450); RED BLOOD CELL COUNT(AUTO) 3.36 MIL/uL (4.50-5.90); RED CELL DISTRIBUTION WIDTH 18.1 % (11.5-14.5); WHITE BLOOD COUNT (AUTO) 8.1 K/uL (4.5-11.0)
[2017-04-01 11:26] LABS: CALCIUM, TOTAL 8.7 mg/dL (8.8-10.5); CREATININE 1.86 mg/dL (0.60-1.30); POTASSIUM 3.6 mmol/L (3.5-5.1)
[2017-04-01 11:33] VITALS: BP 129/59
[2017-04-01 13:46] LABS: RBC MORPHOLOGY COMMENT ABNORMAL RBC MORPH
[2017-04-01 15:26] VITALS: BP 136/72
[2017-04-01] MEDS ORDERED: MUPI15CR TP (19:03)
[2017-04-01 19:57] LABS: GLUCOSE,POINT OF CARE 142 MG/DL (70-110)
== END 2017-04-01 19:00 | DRG 378 ==
LOC: EMS 19:39 → 5N 03-30 02:00
PROVIDERS: ADMIT Hospitalist; ATTEND Hospitalist
PROC: 30233N1 Transfusion of Nonautologous Red Blood Cells into Peripheral Vein, Percutaneous Approach (ICD-10-PCS; 2017-03-30)
PROC: 0DJD8ZZ Inspection of Lower Intestinal Tract, Via Natural or Artificial Opening Endoscopic (ICD-10-PCS; 2017-03-31)
PROC: 0DB68ZX Excision of Stomach, Via Natural or Artificial Opening Endoscopic, Diagnostic (ICD-10-PCS; principal; 2017-03-31 10:00)
DX: K92.2 Gastrointestinal hemorrhage, unspecified (principal); I13.0 Hypertensive heart and chronic kidney disease with heart failure and stage 1 through stage 4 chronic kidney disease, or unspecified chronic kidney disease; E11.22 Type 2 diabetes mellitus with diabetic chronic kidney disease; I50.9 Heart failure, unspecified; G62.9 Polyneuropathy, unspecified; F20.9 Schizophrenia, unspecified; D50.0 Iron deficiency anemia secondary to blood loss (chronic); F17.210 Nicotine dependence, cigarettes, uncomplicated; I10 Essential (primary) hypertension; H40.9 Unspecified glaucoma; J44.9 Chronic obstructive pulmonary disease, unspecified; Z87.11 Personal history of peptic ulcer disease; Z22.322 Carrier or suspected carrier of Methicillin resistant Staphylococcus aureus; Z28.21 Immunization not carried out because of patient refusal
CPT/HCPCS: 36430; 82270; 82271; 82948; 82962; 86850; 86900; 86901; 86920; 87081; 88305; 88312; 88313; 93005; 96374; 99285; C9113; J2704; J7030; J7040; P9016

== ENCOUNTER 2017-04-18 17:06 | Inpatient (IN) | payer MEDICARE, OTHER ==
[~2017-04-18] VITALS: Ht 180.3 cm; Wt 62.9 kg
[2017-04-18] VITALS (9 sets, daily range): BP systolic 141–155; BP diastolic 61–80
[~2017-04-18 17:06] MED LIST changes: +HYDR-309 PO; -LEVO500 PO; +MUPI15CR TP
[2017-04-18 18:38] LABS: EOSINOPHILS # (AUTO) 0.28 K/uL (0.00-0.70); EOSINOPHILS % (AUTO) 4.45 % (1.0-6.0); HEMATOCRIT 21.1 % (41-53); LYMPHOCYTES % (AUTO) 15.5 % (22.0-44.0); MEAN CORPUSCULAR HGB CONC 32.5 G/dL (31.0-37.0); MEAN CORPUSCULAR VOLUME 96 fL (80-100); MONOCYTES # (AUTO) 0.5 K/uL (0.1-1.0); MONOCYTES % (AUTO) 7.9 % (2.0-9.0); NEUTROPHILS # (AUTO) 4.6 K/uL (1.8-7.7); NEUTROPHILS % (AUTO) 72.1 % (40.0-70.0); PLATELET COUNT (AUTO) 403 K/uL (150-450); RED BLOOD CELL COUNT(AUTO) 2.21 MIL/uL (4.50-5.90); RED CELL DISTRIBUTION WIDTH 17.2 % (11.5-14.5); WHITE BLOOD COUNT (AUTO) 6.4 K/uL (4.5-11.0)
[2017-04-18 18:41] LABS: HEMOGLOBIN 6.9 g/dL (13.5-17.5)
[2017-04-18 18:48] LABS: CREATININE 2.46 mg/dL (0.60-1.30); POTASSIUM 3.9 mmol/L (3.5-5.1)
[2017-04-18 18:53] LABS: ALBUMIN 3.4 g/dL (3.4-5.0); BILIRUBIN,TOTAL 0.2 mg/dL (0.1-1.0)
[2017-04-18 18:57] LABS: PROTHROMBIN TIME 10.4 SEC (9.4-11.6)
[2017-04-18 18:59] LABS: RBC MORPHOLOGY COMMENT ABNORMAL RBC MORPH
[2017-04-18] MEDS ORDERED: SODIUM CHLORIDE 0.9% 1,000 ML IV ONE (19:30)
[2017-04-18] MEDS ORDERED: ACETAMINOPHEN 325 MG TABLET PO PRN ×2 (20:45→23:30)
[2017-04-18] MEDS ORDERED: 0.9% SODIUM CHLORIDE 10 ML SYRINGE IVP PRN (20:45)
[2017-04-18] MEDS ORDERED: ONDANSETRON HCL 4 MG/2 ML VIAL IVP PRN ×2 (20:45→23:30)
[2017-04-18] MEDS ORDERED: SODIUM CHLORIDE 0.9% 100 ML ONE (22:51)
[2017-04-18] MEDS ORDERED: ALBUTEROL SULFATE 2.5 MG/0.5 ML NEB SOLUTION NEB PRN (23:30)
[2017-04-18] MEDS ORDERED: MAGNESIUM HYDROXIDE SUSPENSION 30 ML UDCUP PO PRN (23:30)
[2017-04-18] MEDS ORDERED: IPRATROPIUM BROMIDE 0.5 MG/2.5 ML NEB SOLUTION NEB PRN (23:30)
[2017-04-18] MEDS ORDERED: DEXTROSE 50%-WATER 25 GM/50 ML SYRINGE IVP PRN (23:30)
[2017-04-18] MEDS ORDERED: BISACODYL 10 MG RECTAL RECTAL SUPPOSITORY PR PRN (23:30)
[2017-04-18] MEDS ORDERED: ZOLPIDEM TARTRATE 5 MG TABLET PO PRN (23:30)
[2017-04-19] VITALS (17 sets, daily range): BP systolic 142–163; BP diastolic 57–77
[2017-04-19 06:17] LABS: GLUCOSE COMMENT 1 Received Meds; GLUCOSE,POINT OF CARE 150 MG/DL (70-110)
[2017-04-19] MEDS: HYDROCODONE/ACETAMINOPHEN 5-325 MG TABLET PO PRN ×3 (06:20→23:31)
[2017-04-19] MEDS: INSULIN ASPART 100 UNITS/ML SQ PRN ×3 (06:23→20:27)
[2017-04-19] MEDS ORDERED: INFLUENZA VIRUS VACCINE QVS 2017-18 (3YR+)/PF 60 MCG/0.5 ML SYRINGE IM ONE (06:45)
[2017-04-19] MEDS ORDERED: -PHARMACY VACCINE NOTE- MISC ONE ×2 (06:45)
[2017-04-19 06:54] LABS: BASOPHILS % (AUTO) 0.2 % (0.0-2.0); EOSINOPHILS % (AUTO) 3.7 % (1.0-6.0); HEMATOCRIT 24.9 % (41-53); HEMOGLOBIN 8.5 g/dL (13.5-17.5); LYMPHOCYTES # (AUTO) 1.2 K/uL (1.0-4.8); LYMPHOCYTES % (AUTO) 18.9 % (22.0-44.0); MEAN CORPUSCULAR HEMOGLOBIN 31.2 pg (26.0-34.0); MEAN CORPUSCULAR VOLUME 92 fL (80-100); MONOCYTES # (AUTO) 0.6 K/uL (0.1-1.0); MONOCYTES % (AUTO) 9.6 % (2.0-9.0); NEUTROPHILS # (AUTO) 4.3 K/uL (1.8-7.7); NEUTROPHILS % (AUTO) 67.6 % (40.0-70.0); PLATELET COUNT (AUTO) 332 K/uL (150-450); RED BLOOD CELL COUNT(AUTO) 2.71 MIL/uL (4.50-5.90); WHITE BLOOD COUNT (AUTO) 6.4 K/uL (4.5-11.0)
[2017-04-19 07:06] LABS: BILIRUBIN,TOTAL 0.7 mg/dL (0.1-1.0); CALCIUM, TOTAL 8.8 mg/dL (8.8-10.5); CREATININE 2.11 mg/dL (0.60-1.30); PHOSPHORUS 3.9 mg/dL (2.5-4.9); POTASSIUM 3.8 mmol/L (3.5-5.1); TOTAL PROTEIN, SERUM 6.4 g/dL (6.4-8.2)
[2017-04-19] MEDS: GABAPENTIN 300 MG CAPSULE PO SCH ×3 (08:24→20:26)
[2017-04-19] MEDS: DOCUSATE SODIUM 100 MG CAPSULE PO SCH ×2 (08:25→21:00)
[2017-04-19] MEDS: FUROSEMIDE 40 MG TABLET PO SCH ×2 (08:25→20:26)
[2017-04-19] MEDS: FERROUS SULFATE 325 MG EC TABLET PO SCH ×2 (08:25→18:06)
[2017-04-19] MEDS: SPIRONOLACTONE 25 MG TABLET PO SCH (08:25)
[2017-04-19] MEDS: VITAMIN B COMP/VIT C/FOLIC ACID CAPSULE PO SCH (08:25)
[2017-04-19] MEDS: HydrALAZINE HCL 50 MG TABLET PO SCH ×2 (08:25→20:26)
[2017-04-19] MEDS: METOPROLOL SUCCINATE 25 MG ER TABLET PO SCH (08:26)
[2017-04-19] MEDS: INSULIN DETEMIR 100 UNITS/ML SQ SCH ×2 (08:35→20:27)
[2017-04-19 08:42] LABS: GLUCOSE COMMENT 1 Received Meds; GLUCOSE,POINT OF CARE 200 MG/DL (70-110)
[2017-04-19] MEDS ORDERED: PANTOPRAZOLE SODIUM 40 MG DR TABLET PO SCH (09:00)
[2017-04-19] MEDS ORDERED: PANTOPRAZOLE SODIUM 80 MG in SODIUM CHLORIDE 0.9% 100 ML IV SCH (12:00)
[2017-04-19] MEDS: AmLODIPine BESYLATE 10 MG TABLET PO SCH (12:24)
[2017-04-19 17:47] LABS: GLUCOSE,POINT OF CARE 122 MG/DL (70-110)
[2017-04-19 18:32] LABS: GLUCOSE COMMENT 1 Received Meds; GLUCOSE,POINT OF CARE 184 MG/DL (70-110)
[2017-04-19] MEDS ORDERED: PANTOPRAZOLE SODIUM 40 MG/VIAL IVP SCH (21:00)
[2017-04-20] VITALS: BP 159/70
[2017-04-20 04:55] VITALS: BP 156/70
[2017-04-20 05:18] LABS: GLUCOSE,POINT OF CARE 145 MG/DL (70-110)
[2017-04-20 07:40] VITALS: BP 154/71
[2017-04-20 07:46] LABS: BASOPHILS # (AUTO) 0.01 K/uL (0.00-0.20); BASOPHILS % (AUTO) 0.2 % (0.0-2.0); EOSINOPHILS # (AUTO) 0.28 K/uL (0.00-0.70); EOSINOPHILS % (AUTO) 4.05 % (1.0-6.0); HEMATOCRIT 28.4 % (41-53); HEMOGLOBIN 9.3 g/dL (13.5-17.5); LYMPHOCYTES # (AUTO) 0.6 K/uL (1.0-4.8); LYMPHOCYTES % (AUTO) 9.4 % (22.0-44.0); MEAN CORPUSCULAR HEMOGLOBIN 30.7 pg (26.0-34.0); MEAN CORPUSCULAR HGB CONC 32.8 G/dL (31.0-37.0); MEAN CORPUSCULAR VOLUME 94 fL (80-100); MONOCYTES # (AUTO) 0.5 K/uL (0.1-1.0); MONOCYTES % (AUTO) 6.9 % (2.0-9.0); NEUTROPHILS # (AUTO) 5.4 K/uL (1.8-7.7); NEUTROPHILS % (AUTO) 79.5 % (40.0-70.0); PLATELET COUNT (AUTO) 364 K/uL (150-450); RED BLOOD CELL COUNT(AUTO) 3.04 MIL/uL (4.50-5.90); RED CELL DISTRIBUTION WIDTH 17.2 % (11.5-14.5); WHITE BLOOD COUNT (AUTO) 6.8 K/uL (4.5-11.0)
[2017-04-20 07:52] LABS: GLUCOSE,POINT OF CARE 93 MG/DL (70-110)
[2017-04-20 08:17] LABS: CALCIUM, TOTAL 9.1 mg/dL (8.8-10.5); CREATININE 2.06 mg/dL (0.60-1.30); POTASSIUM 3.7 mmol/L (3.5-5.1)
[2017-04-20] MEDS: FUROSEMIDE 40 MG TABLET PO SCH (08:47)
[2017-04-20] MEDS: METOPROLOL SUCCINATE 25 MG ER TABLET PO SCH (08:47)
[2017-04-20] MEDS: SPIRONOLACTONE 25 MG TABLET PO SCH (08:47)
[2017-04-20] MEDS: VITAMIN B COMP/VIT C/FOLIC ACID CAPSULE PO SCH (08:48)
[2017-04-20] MEDS: FERROUS SULFATE 325 MG EC TABLET PO SCH ×2 (08:48→17:57)
[2017-04-20] MEDS: HydrALAZINE HCL 50 MG TABLET PO SCH (08:48)
[2017-04-20] MEDS: AmLODIPine BESYLATE 10 MG TABLET PO SCH (08:48)
[2017-04-20] MEDS: GABAPENTIN 300 MG CAPSULE PO SCH ×2 (08:48→15:44)
[2017-04-20] MEDS: DOCUSATE SODIUM 100 MG CAPSULE PO SCH (08:49)
[2017-04-20] MEDS: HYDROCODONE/ACETAMINOPHEN 5-325 MG TABLET PO PRN ×3 (08:52→18:41)
[2017-04-20] MEDS: INSULIN DETEMIR 100 UNITS/ML SQ SCH (09:00)
[2017-04-20 09:22] LABS: GLUCOSE,POINT OF CARE 76 MG/DL (70-110)
[2017-04-20 09:38] LABS: RBC MORPHOLOGY COMMENT ABNORMAL RBC MORPH
[2017-04-20 11:42] LABS: GLUCOSE COMMENT 1 Received Meds; GLUCOSE,POINT OF CARE 151 MG/DL (70-110)
[2017-04-20 11:45] VITALS: BP 156/77
[2017-04-20] MEDS: INSULIN ASPART 100 UNITS/ML SQ PRN ×2 (12:01→18:14)
[2017-04-20 15:29] VITALS: BP 153/75
[2017-04-20 18:18] LABS: GLUCOSE COMMENT 1 Received Meds; GLUCOSE,POINT OF CARE 163 MG/DL (70-110)
== END 2017-04-20 17:30 | disposition home or self-care (01) | DRG 378 ==
LOC: EMS 17:08 → 6N 21:02
PROVIDERS: ADMIT Internal Medicine; ATTEND Internal Medicine
PROC: 30233N1 Transfusion of Nonautologous Red Blood Cells into Peripheral Vein, Percutaneous Approach (ICD-10-PCS; principal; 2017-04-18)
PROC: 3E0234Z Introduction of Serum, Toxoid and Vaccine into Muscle, Percutaneous Approach (ICD-10-PCS; 2017-04-19)
DX: K92.2 Gastrointestinal hemorrhage, unspecified (principal); I13.0 Hypertensive heart and chronic kidney disease with heart failure and stage 1 through stage 4 chronic kidney disease, or unspecified chronic kidney disease; E44.0 Moderate protein-calorie malnutrition; E11.22 Type 2 diabetes mellitus with diabetic chronic kidney disease; K56.609 Unspecified intestinal obstruction, unspecified as to partial versus complete obstruction; E11.65 Type 2 diabetes mellitus with hyperglycemia; N18.3 Chronic kidney disease, stage 3 (moderate); F20.9 Schizophrenia, unspecified; D50.0 Iron deficiency anemia secondary to blood loss (chronic); F17.200 Nicotine dependence, unspecified, uncomplicated; Z68.1 Body mass index [BMI] 19.9 or less, adult; I50.9 Heart failure, unspecified; E78.5 Hyperlipidemia, unspecified; G89.29 Other chronic pain; H40.9 Unspecified glaucoma; J44.9 Chronic obstructive pulmonary disease, unspecified; K21.9 Gastro-esophageal reflux disease without esophagitis; M19.90 Unspecified osteoarthritis, unspecified site; N40.0 Benign prostatic hyperplasia without lower urinary tract symptoms; Z87.11 Personal history of peptic ulcer disease; Z23 Encounter for immunization
CPT/HCPCS: 36430; 82271; 82962; 83735; 84100; 86850; 86900; 86901; 86920; 87081; 90471; 93005; 96360; 96361; 99285; C9113; J7030; J7050; P9016

== ENCOUNTER 2017-05-15 18:23 | Inpatient (IN) | payer MEDICARE, OTHER ==
[~2017-05-15] VITALS: Ht 180.3 cm; Wt 88.6 kg
[~2017-05-15 18:23] MED LIST changes: -MUPI15CR TP
[2017-05-15 18:36] LABS: GLUCOSE,POINT OF CARE 118 MG/DL (70-110)
[2017-05-15 20:43] LABS: EOSINOPHILS % (AUTO) 2.9 % (1.0-6.0); MONOCYTES # (AUTO) 0.5 K/uL (0.1-1.0); NEUTROPHILS # (AUTO) 5.9 K/uL (1.8-7.7); RED BLOOD CELL COUNT(AUTO) 2.27 MIL/uL (4.50-5.90)
[2017-05-15 20:48] LABS: BASOPHILS % (AUTO) 0.8 % (0.0-2.0); LYMPHOCYTES % (AUTO) 13.4 % (22.0-44.0); MEAN CORPUSCULAR HGB CONC 33.4 G/dL (31.0-37.0); MEAN CORPUSCULAR VOLUME 93 fL (80-100); MONOCYTES % (AUTO) 6.7 % (2.0-9.0); NEUTROPHILS % (AUTO) 76.2 % (40.0-70.0); PLATELET COUNT (AUTO) 319 K/uL (150-450); RED CELL DISTRIBUTION WIDTH 17.2 % (11.5-14.5)
[2017-05-15 21:11] LABS: CALCIUM, TOTAL 8.6 mg/dL (8.8-10.5); CREATININE 3.85 mg/dL (0.60-1.30); POTASSIUM 3.6 mmol/L (3.5-5.1)
[2017-05-15 21:17] LABS: ALBUMIN 3.5 g/dL (3.4-5.0); BILIRUBIN,TOTAL 0.3 mg/dL (0.1-1.0); TOTAL PROTEIN, SERUM 7.1 g/dL (6.4-8.2)
[2017-05-15] MEDS ORDERED: DiphenhydrAMINE HCL 25 MG CAPSULE PO ONE (21:45)
[2017-05-15] MEDS ORDERED: ACETAMINOPHEN 500 MG TABLET PO ONE (21:45)
[2017-05-15 21:54] LABS: RETICULOCYTE % (AUTO) 2.4 % (0.5-2.3)
[2017-05-15] MEDS ORDERED: SODIUM CHLORIDE 0.9% 500 ML IV ONE (22:27)
[2017-05-15] MEDS ORDERED: INSULIN ASPART 100 UNITS/ML SQ PRN (22:45)
[2017-05-15] MEDS ORDERED: BISACODYL 10 MG RECTAL RECTAL SUPPOSITORY PR PRN (22:45)
[2017-05-15] MEDS ORDERED: ONDANSETRON HCL 4 MG/2 ML VIAL IVP PRN (22:45)
[2017-05-15] MEDS ORDERED: IPRATROPIUM BROMIDE 0.5 MG/2.5 ML NEB SOLUTION NEB PRN (22:45)
[2017-05-15] MEDS ORDERED: ALBUTEROL SULFATE 2.5 MG/0.5 ML NEB SOLUTION NEB PRN (22:45)
[2017-05-15] MEDS ORDERED: ACETAMINOPHEN 325 MG TABLET PO PRN (22:45)
[2017-05-15] MEDS ORDERED: OxyCODONE HCL/ACETAMINOPHEN 5-325 MG TABLET PO PRN (22:45)
[2017-05-15] MEDS ORDERED: ZOLPIDEM TARTRATE 5 MG TABLET PO PRN (22:45)
[2017-05-15] MEDS ORDERED: MAGNESIUM HYDROXIDE SUSPENSION 30 ML UDCUP PO PRN (22:45)
[2017-05-15] MEDS ORDERED: DEXTROSE 50%-WATER 25 GM/50 ML SYRINGE IVP PRN (22:45)
[2017-05-15 22:47] VITALS: BP 156/64
[2017-05-15 23:02] VITALS: BP 153/66
[2017-05-15 23:17] VITALS: BP 159/72
[2017-05-15 23:47] VITALS: BP 161/72
[2017-05-16] VITALS (18 sets, daily range): BP systolic 135–159; BP diastolic 61–84
[2017-05-16 06:37] LABS: BASOPHILS % (AUTO) 0.1 % (0.0-2.0); EOSINOPHILS # (AUTO) 0.23 K/uL (0.00-0.70); HEMATOCRIT 25.3 % (41-53); HEMOGLOBIN 8.3 g/dL (13.5-17.5); LYMPHOCYTES # (AUTO) 1.2 K/uL (1.0-4.8); MEAN CORPUSCULAR HGB CONC 32.6 G/dL (31.0-37.0); MEAN CORPUSCULAR VOLUME 92 fL (80-100); MONOCYTES # (AUTO) 0.3 K/uL (0.1-1.0); MONOCYTES % (AUTO) 4.9 % (2.0-9.0); NEUTROPHILS # (AUTO) 5.2 K/uL (1.8-7.7); NEUTROPHILS % (AUTO) 74.7 % (40.0-70.0); PLATELET COUNT (AUTO) 267 K/uL (150-450); RED BLOOD CELL COUNT(AUTO) 2.75 MIL/uL (4.50-5.90); RED CELL DISTRIBUTION WIDTH 18.1 % (11.5-14.5)
[2017-05-16 07:16] LABS: ALBUMIN 3.1 g/dL (3.4-5.0); BILIRUBIN,TOTAL 0.5 mg/dL (0.1-1.0); CALCIUM, TOTAL 8.4 mg/dL (8.8-10.5); CREATININE 3.63 mg/dL (0.60-1.30); MAGNESIUM 1.5 mg/dL (1.80-2.40); PHOSPHORUS 4.7 mg/dL (2.5-4.9); POTASSIUM 3.5 mmol/L (3.5-5.1); TOTAL PROTEIN, SERUM 6.5 g/dL (6.4-8.2)
[2017-05-16 07:28] LABS: GLUCOSE,POINT OF CARE 99 MG/DL (70-110)
[2017-05-16] MEDS ORDERED: FERROUS SULFATE 325 MG EC TABLET PO SCH (08:00)
[2017-05-16 08:04] LABS: HEMOGLOBIN A1C 5.1 % (4.5-6.2)
[2017-05-16] MEDS ORDERED: METOPROLOL SUCCINATE 25 MG ER TABLET PO SCH (09:00)
[2017-05-16] MEDS ORDERED: SPIRONOLACTONE 25 MG TABLET PO SCH (09:00)
[2017-05-16] MEDS ORDERED: VITAMIN B COMP/VIT C/FOLIC ACID CAPSULE PO SCH (09:00)
[2017-05-16] MEDS ORDERED: INSULIN DETEMIR 100 UNITS/ML SQ SCH (09:00)
[2017-05-16] MEDS ORDERED: GABAPENTIN 300 MG CAPSULE PO SCH (09:00)
[2017-05-16] MEDS ORDERED: PANTOPRAZOLE SODIUM 40 MG DR TABLET PO SCH (09:00)
[2017-05-16] MEDS ORDERED: AmLODIPine BESYLATE 5 MG TABLET PO SCH (09:00)
[2017-05-16] MEDS: OxyCODONE HCL/ACETAMINOPHEN 5-325 MG TABLET PO PRN ×2 (09:02→13:16)
[2017-05-16 13:29] LABS: APPEARANCE,URINE CLEAR (CLEAR); BILIRUBIN,URINE NEGATIVE (NEGATIVE); GLUCOSE, URINE (UA) NEGATIVE (NEGATIVE); KETONES,URINE NEGATIVE (NEGATIVE); LEUKOCYTE ESTERASE ,URINE NEGATIVE (NEGATIVE); NITRATE,URINE NEGATIVE (NEGATIVE); OCCULT BLOOD,URINE NEGATIVE (NEGATIVE); PH,URINE 5.5 (5.0-8.0); UROBILINOGEN,URINE 0.2 mg/dL (<=1.0)
[2017-05-16 13:30] LABS: AMPHET/METH SCREEN,URINE NEGATIVE (NEGATIVE); BARBITURATE SCREEN, URINE NEGATIVE (NEGATIVE); BENZODIAZEPINES SCREEN,URINE NEGATIVE (NEGATIVE); CANNABINOID SCREEN,URINE NEGATIVE (NEGATIVE); COCAINE SCREEN,URINE NEGATIVE (NEGATIVE); METHADONE SCREEN, URINE NEGATIVE (NEGATIVE); OPIATE SCREEN,URINE POSITIVE (NEGATIVE)
[2017-05-16 13:33] LABS: BACTERIA,URINE None Seen /HPF (None Seen); PHENCYCLIDINE SCREEN,URINE NEGATIVE (NEGATIVE); PROTEIN,URINE NEGATIVE (NEGATIVE); RBC,URINE None Seen /HPF (0-2); WBC,URINE None Seen /HPF (0-5)
[2017-05-16] MEDS ORDERED: MAGNESIUM SULFATE 3 GM in DEXTROSE 5%-WATER 100 ML IV ONE (18:30)
== END 2017-05-16 16:00 | disposition left against medical advice (07) | DRG 377 ==
LOC: EMS 18:27 → AHU 05-16
PROVIDERS: ADMIT Internal Medicine; ATTEND Internal Medicine
PROC: 30233N1 Transfusion of Nonautologous Red Blood Cells into Peripheral Vein, Percutaneous Approach (ICD-10-PCS; principal; 2017-05-16)
DX: K92.2 Gastrointestinal hemorrhage, unspecified (principal); I50.33 Acute on chronic diastolic (congestive) heart failure; E11.22 Type 2 diabetes mellitus with diabetic chronic kidney disease; E11.43 Type 2 diabetes mellitus with diabetic autonomic (poly)neuropathy; E83.42 Hypomagnesemia; I42.9 Cardiomyopathy, unspecified; I13.0 Hypertensive heart and chronic kidney disease with heart failure and stage 1 through stage 4 chronic kidney disease, or unspecified chronic kidney disease; N18.4 Chronic kidney disease, stage 4 (severe); D64.9 Anemia, unspecified; E11.65 Type 2 diabetes mellitus with hyperglycemia; E78.5 Hyperlipidemia, unspecified; F17.200 Nicotine dependence, unspecified, uncomplicated; F20.9 Schizophrenia, unspecified; H40.9 Unspecified glaucoma; K21.9 Gastro-esophageal reflux disease without esophagitis; N40.0 Benign prostatic hyperplasia without lower urinary tract symptoms; J44.9 Chronic obstructive pulmonary disease, unspecified; M19.90 Unspecified osteoarthritis, unspecified site; Z79.4 Long term (current) use of insulin; Z87.11 Personal history of peptic ulcer disease
CPT/HCPCS: 36430; 76770; 82270; 82962; 83036; 83735; 84100; 85045; 86850; 86900; 86901; 86920; 93005; 93306; 99285; J3475; J7040; J7060; P9016